=== PATIENT | female | born 1980 | race Caucasian/White ===

== ENCOUNTER → 2019-11-17 14:00 | Outpatient (CLI) | payer BC, SELFPAY ==
[2019-11-20 12:07] LABS: Age Gdln ACOG Testing 30-65 (.)
[2019-11-20 16:30] LABS: HPV APTIMA, High Risk Negative (Negative); HPV Reflexed? YES, CHARGE PATIENT
== END ==
PROVIDERS: Visit Provider Obstetrics & Gynecology
DX: Z12.4 Encounter for screening for malignant neoplasm of cervix (principal)
CPT/HCPCS: 87624; 88175; G0145